=== PATIENT | male | born 1990 | race Caucasian/White ===

== ENCOUNTER 2018-03-15 16:11 | Emergency (ER) | payer SELFPAY ==
[~2018-03-15] VITALS: Ht 188 cm; Wt 80.6 kg
[2018-03-15 16:11] VITALS: BP 130/65
[2018-03-15] MEDS ORDERED: HYDR-971 PO (16:46)
--- NOTE | 2018-03-15 16:46 | PHYS DOC ---
Past History Past Medical History: No Pertinent History Past Surgical History: Other Alcohol Use: None Drug Use: None Adult General Chief Complaint Chief Complaint: DENTAL PROBLEM HPI HPI 27-year-old male patient had root canal on tooth #15 3 days ago and ran out of prescribed 10 hydrocodone and his pain is not improving. Patient denies fever and chills, pus drainage, nausea and vomiting. Patient feeling of mild edema left side of his face. Review of Systems Review of Systems Constitutional: Denies fever or chills [] Eyes: Denies change in visual acuity, redness, or eye pain [] HENT: Denies nasal congestion or sore throat , reports dental pain[] Respiratory: Denies cough or shortness of breath [] Cardiovascular: No additional information not addressed in HPI [] GI: Denies abdominal pain, nausea, vomiting, bloody stools or diarrhea [] : Denies dysuria or hematuria [] Musculoskeletal: Denies back pain or joint pain [] Integument: Denies rash or skin lesions [] Neurologic: Denies headache, focal weakness or sensory changes [] Endocrine: Denies polyuria or polydipsia [] All other systems were reviewed and found to be within normal limits, except as documented in this note. Allergies Allergies Allergies Coded Allergies Type Severity Reaction Last Updated Verified No Known Drug Allergies 03/15/18 No Physical Exam Physical Exam Constitutional: Well developed, well nourished, mild distress, non-toxic appearance. [] HENT: Normocephalic, atraumatic, left facial marked edema without erythema, bilateral external ears normal, oropharynx moist, no oral exudates, nose normal , erythema and edema of left upper jaw gum and tenderness of tooth #15 without sign of abscess. Eyes: PERRLA, EOMI, conjunctiva normal, no discharge. [] Neck: Normal range of motion, no tenderness, supple, no stridor. [] Cardiovascular:Heart rate regular rhythm, no murmur [] Lungs & Thorax: Bilateral breath sounds clear to auscultation [] Extremities: No tenderness, no cyanosis, no clubbing, ROM intact, no edema. [] Neurologic: Alert and oriented X 3, normal motor function, normal sensory function, no focal deficits noted. [] Psychologic: Affect normal, judgement normal, mood normal. [] Current Patient Data Vital Signs Vital Signs Date Time Temp Pulse Resp B/P (MAP) Pulse Ox O2 Delivery O2 Flow Rate FiO2 03/15/18 16:11 98.4 86 18 100 Room Air EKG EKG [] Radiology/Procedures Radiology/Procedures [[address] [address] IMAGING REPORT Signed PATIENT: JATIN VALENZUELA ACCOUNT: [id number] : 12/06/1992 LOCATION: ER AGE: 25 SEX: M EXAM STATUS: REG ER ORD. PHYSICIAN: LUI DUNN MD REASON: injury PROCEDURE: ANKLE RIGHT 3V Right foot and ankle radiograph 03/16/2018 8:34 AM INDICATION: Heart ankle and foot playing basketball COMPARISON: None available. TECHNIQUE: 3 views of the right foot and 3 views the right ankle are provided. FINDINGS: The tibial plafond and talar dome are intact. Ankle mortise is congruent. No acute fracture or dislocation involving the ankle. There is linear ossific fragment along the dorsal margin of the talus and navicular bones suspicious for avulsion fractures. Bone mineralization is within normal limits. Joint spaces are maintained. There is dorsal soft tissue swelling. There is no soft tissue gas or osseous erosion. IMPRESSION: Linear ossific fragments are identified along the dorsal margin of the navicular bone and the anterior talus suspicious for avulsion fractures. There is associated soft tissue swelling. Electronically signed by: Peterson Michelle MD (03/16/2018 9:21 AM) [id number] DICTATED AND SIGNED BY: PETERSON MICHELLE MD DATE: 03/16/18917 CC: LUI DUNN MD; PCP,UNKNOWN ~] Course & Med Decision Making Course & Med Decision Making discharge: I've spoken with the patient and/or caregivers. I've explained the patient's condition, diagnosis and treatment plan based on information available to me at this time. I've answered the patient's and/or caregivers questions and addressed any concerns. The patient and/or caregivers have a good understanding the patient's diagnosis, condition and treatment plan as can be expected at this point. Vital signs have been stabilized. The patient's condition is stable for discharge from the emergency department. The patient will pursue further outpatient evaluation with her primary care provider or other designated consulting physician as outlined in the discharge instructions. Patient and/or caregivers are agreeable to this plan of care and follow-up instructions have been explained in detail. The patient and/or caregivers have received these instructions in written format and expressed understanding of these discharge instructions. The patient and her caregivers are aware that if any significant change in condition or worsening of symptoms should prompt him to immediately return to this of the closest emergency department. If an emergent department is not readily available I would encourage him to call 911. Dragon Disclaimer Dragon Disclaimer This electronic medical record was generated, in whole or in part, using a voice recognition dictation system. Departure Departure: Impression: Primary Impression: Encounter for medication refill Additional Impression: Dental implant pain Disposition: HOME, SELF-CARE (at 1644) Condition: STABLE Referrals: PCP,NO (PCP) Patient Instructions: Cellulitis, Dental Pain Additional Instructions: Drink plenty of liquids Follow-up with your dentist in 2 the Return to ER if not getting better Continue home antibiotic Scripts Hydrocodone Bit/Acetaminophen (NORCO 5-325 TABLET) 1 Each Tablet 1 TAB PO PRN Q6HRS PRN for PAIN, #14 TAB 0 Refills Prov: LUI DUNN MD 03/15/18 Problem Qualifiers LUI DUNN MD Mar 15, 2018 16:46
== END 2018-03-15 17:00 | disposition home or self-care (01) ==
LOC: ER 16:11
DX: G89.18 Other acute postprocedural pain (principal); Z76.0 Encounter for issue of repeat prescription
CPT/HCPCS: 99283

== ENCOUNTER 2018-03-18 01:57 | Emergency (ER) | payer SELFPAY ==
[2018-03-15 17:00] VITALS: BP 117/61
[~2018-03-18] VITALS: Ht 188 cm; Wt 80.6 kg
[~2018-03-18 01:57] MED LIST: HYDR-971 PO
--- NOTE | 2018-03-18 02:13 | PHYS DOC ---
Past History Past Medical History: No Pertinent History Past Surgical History: Other Alcohol Use: None Drug Use: None Adult General Chief Complaint Chief Complaint: DENTAL PROBLEM HPI HPI 27-year-old male presents with dental pain and possible abscess. The patient had a root canal done on Friday. He then began to have swelling and increased pain. He was placed on amoxicillin which did not seem to work. Today, the patient was placed on clindamycin, but the area was not drained. He will follow up at 1 AM this morning with significant pain despite taking 2 Tylenol threes that he was prescribed. He is concerned that the swelling continues to increase in the pain is not tolerable. He denies fever or chills. He has no other complaints. Review of Systems Review of Systems Constitutional: Denies fever or chills [] Eyes: Denies change in visual acuity, redness, or eye pain [] HENT: Right upper quadrant dental pain[] Respiratory: Denies cough or shortness of breath [] Cardiovascular: No additional information not addressed in HPI [] GI: Denies abdominal pain, nausea, vomiting, bloody stools or diarrhea [] : Denies dysuria or hematuria [] Musculoskeletal: Denies back pain or joint pain [] Integument: Denies rash or skin lesions [] Neurologic: Denies headache, focal weakness or sensory changes [] Endocrine: Denies polyuria or polydipsia [] All other systems were reviewed and found to be within normal limits, except as documented in this note. Allergies Allergies Allergies Coded Allergies Type Severity Reaction Last Updated Verified No Known Drug Allergies 03/15/18 No Physical Exam Physical Exam Constitutional: Well developed, well nourished, no acute distress, non-toxic appearance. [] HENT: Normocephalic, atraumatic, bilateral external ears normal, oropharynx moist, no oral exudates, nose normal. Right upper quadrant on the lateral side is erythematous and there is a 1 cm fluctuant mass along the gumline. [] Eyes: PERRLA, EOMI, conjunctiva normal, no discharge. [] Neck: Normal range of motion, no tenderness, supple, no stridor. [] Cardiovascular:Heart rate regular rhythm, no murmur [] Lungs & Thorax: Bilateral breath sounds clear to auscultation [] Abdomen: Bowel sounds normal, soft, no tenderness, no masses, no pulsatile masses. [] Skin: Warm, dry, no erythema, no rash. [] Back: No tenderness, no CVA tenderness. [] Extremities: No tenderness, no cyanosis, no clubbing, ROM intact, no edema. [] Neurologic: Alert and oriented X 3, normal motor function, normal sensory function, no focal deficits noted. [] Psychologic: Affect normal, judgement normal, mood normal. [] EKG EKG [] Radiology/Procedures Radiology/Procedures [] Course & Med Decision Making Course & Med Decision Making Pertinent Labs and Imaging studies reviewed. (See chart for details) Performed an incision and drain on the patient's dental abscess. See note below for details. There were no complications. The patient stated decrease in his pain and pressure. He is already on clindamycin which is in appropriate antibiotic. He is stable for discharge at this time. Incision and drain: The appropriate site for drainage was identified and verified with the patient. Viscous lidocaine was applied to a 4 x 4 gauze pad and placed over the area for 10 minutes. This provided sufficient anesthetic. I then penetrated the abscess wall with a 21-gauge needle while retracting the stopper. There was no blood return. I then removed the needle and the abscess began to spontaneously drain. I observed some of the purulent fluid with a gauze pad. I then took a #11 blade scalpel and made a 1/2 cm incision in the wall of the abscess. There was increased purulent drainage likely 1-2 mL total. The abscess was massaged to ensure was empty. The patient tolerated the procedure well. There is minimal bleeding. The patient expressed improvement in pressure after the procedure. [] Dragon Disclaimer Dragon Disclaimer This electronic medical record was generated, in whole or in part, using a voice recognition dictation system. Departure Departure: Referrals: PCP,NO (PCP) TRISTON MONAHAN DO Mar 18, 2018 02:13
[2018-03-18] MEDS ORDERED: LIDOCAINE 2% VISCOUS 15 ML SOLUTION. SWSW ONE (02:30)
[2018-03-18] MEDS ORDERED: HYDROcodone/APAP 5/325MG 1 TAB TABLET PO ONE (03:15)
== END 2018-03-18 03:01 | disposition home or self-care (01) ==
LOC: ER 01:57
DX: K04.7 Periapical abscess without sinus (principal)
CPT/HCPCS: 41800; 99283